=== PATIENT | female | born 1990 | race Caucasian/White ===

== ENCOUNTER 2018-05-06 11:56 | Emergency (ER) | payer OTHER ==
[2018-05-06 12:51] LABS: Hematocrit 40 % (35-47); Hemoglobin 13.1 g/dl (12.0-16.0); Mean Corpuscular HGB Conc 33 g/dl (31-36); Mean Corpuscular Hemoglobin 26 pg (27-31); Mean Corpuscular Volume 79 fL (80-97); Mean Platelet Volume 8.7 fL (7.4-10.4); Platelet Count 340 10^3/ul (150-450); Red Blood Count 5.06 10^6/ul (4.00-5.40); Red Cell Distribution Width 16 % (10.5-15); White Blood Count 7.4 10^3/ul (3.5-10.8)
[2018-05-06 13:10] LABS: Albumin 4.4 g/dL (3.2-5.2); Albumin/Globulin Ratio 1.3 (1-3); BUN/Creatinine Ratio 8.8 (8-20); C Reactive Protein 5.43 mg/L (<8.01); Calcium 9.3 mg/dL (8.6-10.3); EGFR African American 151.7 (>60); EGFR Non-African American 125.4 (>60); Globulin 3.5 g/dL (2-4); Potassium 3.8 mmol/L (3.5-5.0); Total Bilirubin 0.4 mg/dL (0.2-1.0); Total Protein 7.9 g/dL (6.4-8.9)
[2018-05-06 13:39] VITALS: BP 132/94
--- NOTE | 2018-05-06 13:55 | ED ---
HPI Chest Pain - HPI Summary HPI Summary: Patient is a 28-year-old female with a history of depression presents to the ED with substernal chest heaviness which is nonradiating. She does however endorse bilateral upper extremity numbness and tingling. Symptoms have been present for a few days, and have been constant. She states she self medicates with marijuana which improves her symptoms. She denies any nausea or vomiting. History of depression, but no diagnosis history of anxiety. Denies any cardiac or lung pathologies. Patient states symptoms were gradual onset, rated 3/10. Patient appears well. Denies F/S/C. - History of Current Complaint Chief Complaint: EDChestPainROMI Time Seen by Provider: 05/06/18 12:06 Hx Obtained From: Patient Onset/Duration: Started Hours Ago Timing: Constant Initial Severity: Moderate Current Severity: Moderate Pain Intensity: 4 Pain Scale Used: 0-10 Numeric Chest Pain Location: Discrete at: - substernal chest aching Chest Pain Radiates: No Aggravating Factor(s): Nothing Alleviating Factor(s): Nothing - Risk Factors Pulmonary Embolism Risk Factors: Negative TAD Risk Factors: Negative - Allergy/Home Medications Allergies/Adverse Reactions: Allergies Allergy/AdvReac Type Severity Reaction Status Date / Time Adhesive Tape Allergy Hives Verified 05/06/18 12:46 [Tegaderm Dressing] amoxicillin Allergy Hives Verified 05/06/18 12:01 PMH/Surg Hx/FS Hx/Imm Hx Previously Healthy: Yes Infectious Disease History: No Infectious Disease History: Reports: Traveled Outside the [place] in Last 30 Days - Social History Occupation: Unemployed Lives: With Family Alcohol Use: Rare Hx Substance Use: Yes Substance Use Type: Reports: Marijuana Hx Tobacco Use: No Smoking Status (MU): Never Smoked Tobacco Review of Systems Constitutional: Negative Negative: Fever, Chills, Fatigue, Skin Diaphoresis Positive: Chest Pain. Negative: Palpitations Negative: Shortness Of Breath Negative: Abdominal Pain, Vomiting, Diarrhea, Nausea Genitourinary: Negative Positive: no symptoms reported, see HPI Negative: Arthralgia, Myalgia Skin: Negative Neurological: Negative Positive: Depressed All Other Systems Reviewed And Are Negative: Yes Physical Exam Triage Information Reviewed: Yes Vital Signs On Initial Exam: Initial Vitals Temp Pulse Resp BP Pulse Ox 97.6 F 100 18 151/102 99 05/06/18 11:57 05/06/18 11:57 05/06/18 11:57 05/06/18 11:57 05/06/18 11:57 Vital Signs Reviewed: Yes Appearance: Positive: Well-Appearing, Well-Nourished Skin: Positive: Warm, Skin Color Reflects Adequate Perfusion Head/Face: Positive: Normal Head/Face Inspection Eyes: Positive: EOMI, JUANY, Conjunctiva Clear Neck: Positive: Supple, No Lymphadenopathy Respiratory/Lung Sounds: Positive: Clear to Auscultation, Breath Sounds Present Cardiovascular: Positive: RRR, Pulses are Symmetrical in both Upper and Lower Extremities Musculoskeletal: Positive: Normal, Strength/ROM Intact Neurological: Positive: Speech Normal Psychiatric: Positive: Affect/Mood Appropriate AVPU Assessment: Alert Diagnostics - Vital Signs Vital Signs Temp Pulse Resp BP Pulse Ox 05/06/18 13:27 88 21 132/94 98 05/06/18 13:00 91 15 98 05/06/18 12:57 93 13 146/101 99 05/06/18 12:27 91 15 144/124 99 05/06/18 12:22 84 99 05/06/18 11:57 97.6 F 100 18 151/102 99 - Laboratory Lab Results: Lab Results 05/06/18 05/06/18 05/06/18 Range/Units 12:38 12:38 12:39 WBC 7.4 (3.5-10.8) 10^3/ul RBC 5.06 (4.00-5.40) 10^6/ul Hgb 13.1 (12.0-16.0) g/dl Hct 40 (35-47) % MCV 79 L (80-97) fL MCH 26 L (27-31) pg MCHC 33 (31-36) g/dl RDW 16 H (10.5-15) % Plt Count 340 (150-450) 10^3/ul MPV 8.7 (7.4-10.4) fL D-Dimer, Quantitative < 200 (Less Than 230) ng/mL Sodium 139 (135-145) mmol/L Potassium 3.8 (3.5-5.0) mmol/L Chloride 103 (101-111) mmol/L Carbon Dioxide 25 (22-32) mmol/L Anion Gap 11 (2-11) mmol/L BUN 5 L (6-24) mg/dL Creatinine 0.57 (0.51-0.95) mg/dL Est GFR ( Amer) 151.7 (>60) Est GFR (Non-Af Amer) 125.4 (>60) BUN/Creatinine Ratio 8.8 (8-20) Glucose 109 H (70-100) mg/dL Calcium 9.3 (8.6-10.3) mg/dL Total Bilirubin 0.40 (0.2-1.0) mg/dL AST 33 (13-39) U/L ALT 60 H (7-52) U/L Alkaline Phosphatase 47 (34-104) U/L Troponin I 0.00 (<0.04) ng/mL C-Reactive Protein 5.43 (<8.01) mg/L Total Protein 7.9 (6.4-8.9) g/dL Albumin 4.4 (3.2-5.2) g/dL Globulin 3.5 (2-4) g/dL Albumin/Globulin Ratio 1.3 (1-3) Result Diagrams: 05/06/18 12:39 05/06/18 12:38 Lab Statement: Any lab studies that have been ordered have been reviewed, and results considered in the medical decision making process. Chest Pain Course/Dx - Course Course Of Treatment: During the course, the patient is evaluated for substernal chest pressure and achiness with bilateral numbness and tingling to the upper extremities. She denies any weakness. She denies any urinary symptoms, nausea , vomiting, headache, confusion, memory loss. Denies previous history of cardiac or lung pathologies. Denies any family history. Labs obtained which are unremarkable including a troponin of 0.00. Ekg shows NSR. Discussed findings with patient. I believe due to her symptoms and her history, this is a manifestation of anxiety. At discussed this with the patient willing to write a prescription for breakthrough anxiety symptoms. Patient agrees to return if she develops any worsening or changing symptoms, however will try the Ativan for any breakthrough anxiety symptoms. - Chest Pain Differential Diagnosis/HQI/PQRI: Angina, Other: - atypical chest pain, anxiety - Diagnoses Provider Diagnoses: Anxiety, Atypical chest pain Discharge - Sign-Out/Discharge Documenting (check all that apply): Patient Departure Patient Received Moderate/Deep Sedation with Procedure: No - Discharge Plan Condition: Stable Disposition: HOME Prescriptions: LORazepam TAB(*) [Ativan 1 MG TAB (*)] 1 mg PO Q8H PRN #6 tab MDD 3 PRN Reason: Anxiety Patient Education Materials: Chest Pain (ED), Anxiety (ED) Referrals: [facility] [Outside] No Primary Care Phys,NOPCP [Primary Care Provider] - Additional Instructions: Please follow up with PCP If symptoms worsen - return to the ED - Billing Disposition and Condition Condition: STABLE Disposition: Home
== END 2018-05-06 13:40 | disposition home or self-care (01) ==
LOC: ED 11:56
DX: F41.9 Anxiety disorder, unspecified (principal); R07.89 Other chest pain; Z88.0 Allergy status to penicillin; Z91.048 Other nonmedicinal substance allergy status
CPT/HCPCS: 36415; 80053; 84484; 85027; 85379; 86140; 93005; 99283

== ENCOUNTER 2019-03-16 10:17 | Emergency (ER) | payer OTHER ==
[2019-03-16] MEDS ORDERED: Ibuprofen TAB* 600 MG PO ONE (10:49)
--- NOTE | 2019-03-16 10:53 | UC ---
Lower Extremity/Ankle HPI - HPI Summary HPI Summary: 29-year-old woman comes in with a chief complaint of ankle foot pain after fall. Prior to arrival patient fell down one step and she has pain in the lateral aspect of the left foot just distal to the ankle and also swelling in that area. She also has pain and swelling in the medial part of the ankle of the right ankle. Attempts at weightbearing does cause pain. No complaint of any weakness or numbness. Not weightbearing decreases the pain. - History of Current Complaint Stated Complaint: S/P FALL, B/L ANKLE INJURY Time Seen by Provider: 03/16/19 10:48 - Allergies/Home Medications Allergies/Adverse Reactions: Allergies Allergy/AdvReac Type Severity Reaction Status Date / Time Adhesive Tape Allergy Hives Verified 03/16/19 10:54 [Tegaderm Dressing] amoxicillin Allergy Hives Verified 03/16/19 10:54 Home Medications: Home Medications Cetirizine* [ZyrTEC 10 MG TAB*] 10 mg PO DAILY 03/16/19 [History Confirmed 03/16] Escitalopram * [Lexapro *] 20 mg PO DAILY 03/16/19 [History Confirmed 03/16/19] Montelukast Sodium TAB* [Singulair TAB*] 10 mg PO DAILY 03/16/19 [History Confirmed 03/16/19] metFORMIN* [Glucophage 500 MG TAB *] 500 mg PO BID 03/16/19 [History Confirmed 03/16/19] PMH/Surg Hx/FS Hx/Imm Hx Previously Healthy: Yes - Family History Known Family History: Positive: Non-Contributory - Social History Alcohol Use: Rare Substance Use Type: Marijuana Smoking Status (MU): Never Smoked Tobacco Review of Systems All Other Systems Reviewed And Are Negative: Yes Constitutional: Positive: Negative Skin: Positive: Other - SEE HPI Eyes: Positive: Negative ENT: Positive: Negative Respiratory: Positive: Negative Cardiovascular: Positive: Negative Gastrointestinal: Positive: Negative Motor: Positive: Negative Neurovascular: Positive: Negative Musculoskeletal: Positive: Negative Neurological: Positive: Negative Psychological: Positive: Negative Is Patient Immunocompromised?: No Physical Exam Triage Information Reviewed: Yes Appearance: Well-Appearing, Well-Nourished, Pain Distress - MILD WITH ROM AND EXAM OF ANKLES/LT FOOT Vital Signs Reviewed: Yes Eye Exam: Normal Eyes: Positive: Conjunctiva Clear Neck: Positive: Supple Respiratory: Positive: No respiratory distress Musculoskeletal: Positive: Other: - Left foot and ankle has swelling just distal to the left lateral malleolus in the left midfoot. It is tender to palpation at the site. Right ankle is tender to palpation on the medial malleolus. Normal capillary refill normal sensation. Ankles have Full range of motion but there is pain with range of motion. Toes have full range of motion and are nontender to palpation. The distal feet are nontender to palpation. Neurological: Positive: Alert Psychological: Positive: Age Appropriate Behavior Skin: Positive: Other - Swelling left lateral mid foot. No skin break. Lower Extremity Course/Dx - Course Course Of Treatment: Community Program Assistant: Angel Easton Daniel ([id number]) Budget Director: JAVAD ( JAVAD) Report Date: 03/16/2019 11:19:00 Report Status: Final ====== Start of Report Content Patient Name: RHONDA FOFANA Medical Record#: [id number] Ordering Physician: Shan Hanley MD Acct.#: [id number] : 1990 Age: 29 Sex: F Location: [facility] Exam Date: 03/16/19 1048 ADM Status: REG ER Order Information: FOOT RIGHT 3+ VWS Accession Number: [id number] CPT: 46712 HISTORY: PAIN S/P FALL . COMPARISONS: None relevant available at the time of dictation. VIEWS: 6, Frontal , lateral, and oblique views of the right ankle and right foot FINDINGS: BONE DENSITY: Normal. BONES: There is no displaced fracture. JOINTS: There is no arthropathy. There is a small ankle effusion. ALIGNMENT: There is no dislocation. SOFT TISSUES: Unremarkable. OTHER FINDINGS: None. IMPRESSION: SMALL EFFUSION. NO ACUTE OSSEOUS INJURY. IF SYMPTOMS PERSIST, RECOMMEND REPEAT IMAGING. < Electronically signed by Angel Easton MD in OV> 03/16/191115 Dictated By : Angel Easton MD Dictated Date/Time: 03/16/191114 Transcribed Date/Time : 03/16/191114 Copy to: CC:Megan Yen MD; Shan Hanley MD Imaging - [facility] Imaging [facility] [id number] [place], [place] [id number] [place] [address] ph [phone]) ph ([phone]) ph ([phone]) ===== End of Report Content Community Program Assistant: Angel Easton Daniel, ([id number]) Budget Director: JAVAD, ( NUANCE) Report Date: 03/16/2019 11:19:00 Report Status: Final ====== Start of Report Content Patient Name: RHONDA FOFANA Medical Record#: [id number] Ordering Physician: Shan Hanley MD Acct.#: [id number] : 1990 Age: 29 Sex: F Location: [facility] Exam Date: 03/16/19 1048 ADM Status: REG ER Order Information: ANKLE RIGHT 3+ VWS Accession Number: [id number] CPT: 64522 HISTORY: PAIN S/P FALL . COMPARISONS: None relevant available at the time of dictation. VIEWS: 6, Frontal , lateral, and oblique views of the right ankle and right foot FINDINGS: BONE DENSITY: Normal. BONES: There is no displaced fracture. JOINTS: There is no arthropathy. There is a small ankle effusion. ALIGNMENT: There is no dislocation. SOFT TISSUES: Unremarkable. OTHER FINDINGS: None. IMPRESSION: SMALL EFFUSION. NO ACUTE OSSEOUS INJURY. IF SYMPTOMS PERSIST, RECOMMEND REPEAT IMAGING. < Electronically signed by Angel Easton MD in OV> 03/16/19 111 Dictated By : Angel Easton MD Dictated Date/Time: 03/16/191114 Transcribed Date/Time : 03/16/191114 Copy to: CC:Megan Yen MD; Shan Hanley MD Imaging - [facility] Imaging - [place] [facility] Imaging - [facility] [address] [place] [address] ph [phone]) ph ([phone]) ph ([phone]) ===== End of Report Content Community Program Assistant: Juliana Gomez S, ([id number]) Budget Director: JAVAD (KELLIANCE) Report Date: 03/16/2019 11:21:00 Report Status: Final Start of Report Content Patient Name: RHONDA FOFANA Medical Record# : [id number] Ordering Physician: Shan Hanley MD Acct.#: [id number] : 1990 Age: 29 Sex: F Location: [facility] Exam Date: 03/16/19 1048 ADM Status: REG ER Order Information: ANKLE LEFT 3+VWS Accession Number: [id number] CPT: 89321 Indication: Left ankle pain. 3 views of left ankle demonstrates ankle mortise to be intact. There is no fracture or dislocation noted. No other bone or joint abnormality is identified. IMPRESSION: No fracture of the left ankle is noted. <Electronically signed by Juliana Gomez MD in OV> 03/16/191117 Dictated By: Juliana Gomez MD Dictated Date/Time: 03/16/191113 Transcribed Date/ Time: 03/16/191113 Copy to: CC:Megan Yen MD; Shan Hanley MD Imaging - [facility] Imaging [facility] [address] [address] ph ([phone]) ph ([phone]) ph ([phone]) End of Report Content ========= I discussed the x-rays with the patient. The toes bilaterally are nontender to palpation in the distal feet bilaterally are nontender to palpation. Patient was placed in Simba wraps and gel splint and splints bilaterally. Nursing patient neurovascular intact after placement. Plan is ice anti-inflammatories rest and follow-up with orthopedics or sports medicine if not completely improved. - Differential Dx/Diagnosis Provider Diagnosis: Left ankle sprain, Right ankle sprain, Sprain of left foot Discharge ED - Sign-Out/Discharge Documenting (check all that apply): Patient Departure All imaging exams completed and their final reports reviewed: Yes - Discharge Plan Condition: Stable Disposition: HOME Patient Education Materials: Ankle Sprain (ED), Foot Sprain (ED) Forms: *Work Release Referrals: Megan Yen MD [Primary Care Provider] - Bharath Pantoja MD [Medical Doctor] - [facility] [Provider Group] Additional Instructions: FOLLOW UP WITH ORTHOPEDICS OR SPORTS MEDICINE IF NOT COMPLETELY IMPROVED. GET REEVALUATED SOONER IF NOT IMPROVING OR WORSE OR ANY QUESTIONS OR CONCERNS. - Billing Disposition and Condition Condition: STABLE Disposition: Home
[2019-03-16 11:02] VITALS: BP 125/83
== END 2019-03-16 12:18 | disposition home or self-care (01) ==
LOC: UCCORT 10:17
DX: S93.402A Sprain of unspecified ligament of left ankle, initial encounter (principal); S93.401A Sprain of unspecified ligament of right ankle, initial encounter; S93.602A Unspecified sprain of left foot, initial encounter; M25.471 Effusion, right ankle; W17.89XA Other fall from one level to another, initial encounter; Y92.9 Unspecified place or not applicable; Z91.09 Other allergy status, other than to drugs and biological substances; Z88.0 Allergy status to penicillin
CPT/HCPCS: 99214; A9270-GY; G0463